=== PATIENT | male | born 1990 | race Caucasian/White ===

== ENCOUNTER 2018-04-15 10:34 | Inpatient (IN) | payer OTHER ==
[2018-04-15] MEDS ORDERED: ROPIVACAINE 0.5 % 30 ML VIAL ×2 (12:17→12:19)
[2018-04-15] MEDS ORDERED: BACITRACIN/POLYMYXIN 28.35 GM OINT TOP (12:17)
[2018-04-15] MEDS ORDERED: PROPOFOL 20 ML ×2 (12:18→14:28)
[2018-04-15] MEDS ORDERED: FENTAnyl 50 MCG/ML VIAL (12:18)
[2018-04-15] MEDS ORDERED: METOCLOPRAMIDE 10 MG INJ (12:18)
[2018-04-15] MEDS ORDERED: MIDAZOLAM 1 MG/ML 2 ML INJ ×2 (12:18→19:52)
[2018-04-15] MEDS ORDERED: ROPIVACAINE 0.2% 20 ML VIAL (12:44)
[2018-04-15] MEDS ORDERED: ROCURONIUM 50 MG INJ ×3 (13:15→14:53)
[2018-04-15] MEDS ORDERED: CEFAZOLIN 1 GM INJ ×3 (13:15→18:14)
[2018-04-15] MEDS ORDERED: HYDROmorphONE 2 MG/ML SYG (14:27)
[2018-04-15] MEDS: POLYMYXIN/BACITRACIN 1L IRRIG (14:53)
[2018-04-15] MEDS ORDERED: KETOROLAC 30 MG INJ (15:20)
[2018-04-15] MEDS ORDERED: ONDANSETRON 4 MG INJ (15:20)
[2018-04-15] MEDS ORDERED: ACETAMINOPHEN 1000MG/100ML IV 100 ML (15:20)
[2018-04-15] MEDS ORDERED: OXYCODONE/ACETAMINOPHEN (5/325) TAB PO ×2 (17:00)
[2018-04-15] MEDS ORDERED: DIPHENHYDRAMINE 50 MG INJ IV (17:00)
[2018-04-15] MEDS ORDERED: KETOROLAC 30 MG INJ IV (17:00)
[2018-04-15] MEDS ORDERED: IPRATROPIUM (NEB) 0.5 MG/2.5 ML AMP HHN (17:00)
[2018-04-15] MEDS ORDERED: MEPERIDINE 25 MG INJ IV (17:00)
[2018-04-15] MEDS ORDERED: ONDANSETRON 4 MG INJ IV (17:00)
[2018-04-15] MEDS ORDERED: HYDROmorphONE 1 MG/5 ML IV SYRINGE IV ×2 (17:00)
[2018-04-15] MEDS ORDERED: ALBUTEROL 0.083% (NEB) 2.5 MG/3 ML AMP HHN (17:00)
[2018-04-15] MEDS: MIDAZOLAM 1 MG/ML 2 ML INJ IV (20:25)
[2018-04-15] MEDS: HYDROmorphONE 1 MG/5 ML IV SYRINGE IV (20:28)
[2018-04-15] MEDS ORDERED: oxyCODONE 5 MG TAB PO (20:30)
[2018-04-15] MEDS ORDERED: CEFAZOLIN 1 GM INJ IV (20:30)
[2018-04-15] MEDS ORDERED: DIPHENHYDRAMINE 25 MG CAP PO (20:30)
[2018-04-15] MEDS: PREGABALIN 75 MG CAP PO (21:41)
[2018-04-15] MEDS: oxyCODONE 5 MG TAB PO (21:41)
[2018-04-16] MEDS: oxyCODONE 5 MG TAB PO ×6 (00:54→20:43)
[2018-04-16] MEDS: CEFAZOLIN 2 GM/50 ML (PMX) 50 ML IVPB ×3 (01:44→17:25)
[2018-04-16] MEDS: PREGABALIN 75 MG CAP PO ×2 (08:28→20:48)
[2018-04-16] MEDS: ONDANSETRON 4 MG INJ IV (08:50)
[2018-04-16] MEDS: HYDROmorphONE 1 MG/ML SYG IV ×2 (09:18→12:02)
[2018-04-16] MEDS: RIVAROXABAN 10 MG TABLET PO (17:24)
[2018-04-17] MEDS: CEFAZOLIN 2 GM/50 ML (PMX) 50 ML IVPB ×2 (01:21→09:19)
[2018-04-17] MEDS: oxyCODONE 5 MG TAB PO ×4 (01:21→13:17)
[2018-04-17] MEDS: PREGABALIN 75 MG CAP PO (09:18)
== END 2018-04-17 16:10 | disposition home or self-care (01) | DRG 494 ==
LOC: SDS 10:34 → REC 20:31 → MS1 21:00
PROC: 0QSG04Z Reposition Right Tibia with Internal Fixation Device, Open Approach (ICD-10-PCS; principal; 2018-04-15 12:53)
PROC: 0QSJ04Z Reposition Right Fibula with Internal Fixation Device, Open Approach (ICD-10-PCS; 2018-04-15 12:53)
DX: S82.871A Displaced pilon fracture of right tibia, initial encounter for closed fracture (principal); S82.491A Other fracture of shaft of right fibula, initial encounter for closed fracture; S93.401A Sprain of unspecified ligament of right ankle, initial encounter
CPT/HCPCS: 73610-RT; 82306; 97110; 97116; 97161; 97530